=== PATIENT | male | born 1980 | race Caucasian/White ===

== ENCOUNTER 2017-04-29 15:56 | Emergency (ER) | payer MEDICARE, OTHER ==
[~2017-04-29] VITALS: Ht 167.6 cm; Wt 72.6 kg
[~2017-04-29 15:56] MED LIST: BUSP10TA35 PO; CHOL50006 PO; CYCL-343 PO; FAMO20TA8 PO; IBUP-1482 PO; MELO-264 PO; METO-304 PO; MIDO10TA PO; OFLO5DRO6 EACH EAR; OXCA300T PO; SERT50TA PO; TRAM50TA2 PO; TRAZ-147 PO
--- NOTE | 2017-04-29 16:25 | NUR ---
PT ISSAC FROM [facility] VN TO ER BED 11. C/O SUDDEN ONSET MIDSTERNAL CHEST PAIN. 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 GOWNE AND PLACED ON MONITOR. AWAITING MD DÍAZ.
--- NOTE | 2017-04-29 17:15 | NUR ---
HEALTHCARE FACILITY ADMINISTRATOR AT BEDSIDE FOR BLOOD DRAW.
[2017-04-29 17:22] LABS: BASOPHILS # (AUTO) 0.2 /CMM (0.0-0.2); BASOPHILS % (AUTO) 4.5 % (0.0-2.0); EOSINOPHILS # (AUTO) 0.1 /CMM (0.0-0.7); EOSINOPHILS % (AUTO) 1.7 % (0.0-6.0); HEMATOCRIT 42 % (39-51); HEMOGLOBIN 14.2 g/dL (13.5-17.5); LYMPHOCYTES # (AUTO) 1.6 /CMM (0.8-4.8); LYMPHOCYTES % (AUTO) 29.8 % (20.0-44.0); MEAN CORPUSCULAR HEMOGLOBIN 30 PG (26.0-33.0); MEAN CORPUSCULAR HGB CONC 34 g/dl (31.0-36.0); MEAN CORPUSCULAR VOLUME 89 fL (80-96); MONOCYTES # (AUTO) 0.4 /CMM (0.1-1.30); MONOCYTES % (AUTO) 6.8 % (2.0-12.0); NEUTROPHILS # (AUTO) 2.9 /CMM (1.8-8.9); NEUTROPHILS % (AUTO) 57.2 % (43.0-81.0); PLATELET COUNT (AUTO) 189 /CMM (150-450); RDW COEFFICIENT OF VARIATION 12.6 (11.5-15.0); RED BLOOD CELL COUNT(AUTO) 4.75 MIL/uL (4.5-6.0); WHITE BLOOD COUNT (AUTO) 5.2 K/uL (4.3-11.0)
--- NOTE | 2017-04-29 17:23 | NUR ---
RADIOLOGY AT BEDSIDE FOR EVAL.
[2017-04-29 17:42] LABS: CALCIUM, SERUM 8.7 mg/dL (8.5-10.1); CARBON DIOXIDE 27 mmol/L (21-32); CHLORIDE 105 mmol/L (98-107); CREATININE 0.8 mg/dL (0.6-1.3); GLUCOSE 86 mg/dL (74-106); SODIUM SERUM 141 mmol/L (136-145); UREA NITROGEN, BLOOD 12 mg/dL (7-18)
[2017-04-29 17:43] LABS: ALCOHOL, BLOOD < 3 mg/dL (0-0)
[2017-04-29 17:48] LABS: ALANINE AMINOTRANSFERASE 19 U/L (12-78); ALBUMIN 3.6 g/dL (3.4-5.0); ALKALINE PHOSPHATASE 38 U/L (46-116); ASPARTATE AMINOTRANSFERASE 21 U/L (15-37); BILIRUBIN,TOTAL 0.3 mg/dL (0.2-1.0); LIPASE 205 U/L (73-393); TOTAL PROTEIN, SERUM 6.4 g/dL (6.4-8.2)
[2017-04-29 17:50] LABS: TROPONIN I < 0.017 ng/mL (0.00-0.056)
[2017-04-29 17:59] LABS: VALPROIC ACID 43 ug/mL (50-100)
[2017-04-29 18:08] LABS: APPEARANCE,URINE Clear (CLEAR); BILIRUBIN,URINE Negative (NEGATIVE); BLOOD, URINE Negative Ery/uL (NEGATIVE); COLOR,URINE Yellow (YELLOW); KETONES,URINE Negative (NEGATIVE); LEUKOCYTE ESTERASE ,URINE Negative (NEGATIVE); NITRITE, URINE Negative (NEGATIVE); PROTEIN,URINE Negative (NEGATIVE); UGLUCOSE Negative (NEGATIVE); UROBILINOGEN,URINE 0.2 EU/dL (0.2)
--- NOTE | 2017-04-29 20:00 | NUR ---
ONLINE CONTENT COORDINATOR AT BEDSIDE FOR REPEAT TROP DRAW.
[2017-04-29 21:10] VITALS: BP 128/84
--- NOTE | 2017-04-29 21:10 | NUR ---
Patient discharged to home in stable condition. Written and verbal after care instructions given. Patient verbalizes understanding of instruction.IV removed. Catheter intact and site benign. Pressure and 4x4 applied to site. No bleeding noted.
== END 2017-04-29 21:11 | disposition home or self-care (01) ==
LOC: ER 16:00
DX: R07.2 Precordial pain (principal); F20.9 Schizophrenia, unspecified; F32.9 Major depressive disorder, single episode, unspecified; G40.909 Epilepsy, unspecified, not intractable, without status epilepticus; I10 Essential (primary) hypertension; I25.2 Old myocardial infarction; J44.9 Chronic obstructive pulmonary disease, unspecified; Z95.0 Presence of cardiac pacemaker; Z88.8 Allergy status to other drugs, medicaments and biological substances
CPT/HCPCS: 36415; 71010; 80048; 80076; 80164; 80305; 81001; 83690; 84484 ×2; 85025; 93005 ×3; 96374; 99285; A4606; G0480; J1885; 81000-TC; Z7610

== ENCOUNTER 2017-11-20 17:20 | Emergency (ER) | payer MEDICARE, OTHER ==
[~2017-11-20] VITALS: Ht 165.1 cm; Wt 66.7 kg
[~2017-11-20 17:20] MED LIST changes: -CYCL-343 PO; +CYCL10TA9 PO; -IBUP-1482 PO; +IBUP-1957 PO; +MELO-107 PO; -MELO-264 PO; -METO-304 PO; +METO-357 PO; -OXCA300T PO; +OXCA300T15 PO; -TRAZ-147 PO; +TRAZ-214 PO
[2017-11-20] MEDS ORDERED: KETOROLAC TROMETHAMINE INJ 30 MG/ML VIAL IV ONE (18:00)
[2017-11-20 18:03] LABS: BASOPHILS % (AUTO) 0.9 % (0.0-2.0); EOSINOPHILS % (AUTO) 2.3 % (0.0-6.0); HEMATOCRIT 43 % (39-51); HEMOGLOBIN 15.3 g/dL (13.5-17.5); LYMPHOCYTES # (AUTO) 1.6 /CMM (0.8-4.8); LYMPHOCYTES % (AUTO) 34.7 % (20.0-44.0); MEAN CORPUSCULAR HGB CONC 36 g/dl (31.0-36.0); MEAN CORPUSCULAR VOLUME 88 fL (80-96); MONOCYTES # (AUTO) 0.4 /CMM (0.1-1.30); MONOCYTES % (AUTO) 8.6 % (2.0-12.0); NEUTROPHILS # (AUTO) 2.5 /CMM (1.8-8.9); NEUTROPHILS % (AUTO) 53.5 % (43.0-81.0); PLATELET COUNT (AUTO) 168 /CMM (150-450); RDW COEFFICIENT OF VARIATION 12.3 (11.5-15.0); RED BLOOD CELL COUNT(AUTO) 4.88 MIL/uL (4.5-6.0); WHITE BLOOD COUNT (AUTO) 4.6 K/uL (4.3-11.0)
[2017-11-20] MEDS ORDERED: KETOROLAC TROMETHAMINE INJ 30 MG/ML VIAL ONE (18:03)
[2017-11-20 18:05] LABS: APPEARANCE,URINE Clear (CLEAR); BILIRUBIN,URINE Negative (NEGATIVE); BLOOD, URINE Negative Ery/uL (NEGATIVE); COLOR,URINE Yellow (YELLOW); KETONES,URINE Negative (NEGATIVE); LEUKOCYTE ESTERASE ,URINE Negative (NEGATIVE); NITRITE, URINE Negative (NEGATIVE); PH,URINE 5.5 (5.0-8.0); PROTEIN,URINE Negative (NEGATIVE); UGLUCOSE Negative (NEGATIVE); UROBILINOGEN,URINE 0.2 EU/dL (0.2)
--- NOTE | 2017-11-20 18:05 | NUR ---
[id number] FROM PSYCHE FACILITY FOR "S/P POSSIBLE SEIZURE". PT STATES PAIN LEVEL 9/10 "CRUSHING LIKE". PT STATES "I FELL ON MY RIGHT SIDE AND HIT MY HEAD". BS 86 IN FIELD. PT IS A/A/O x 4. RESP EVEN AND UNLABORED. NO S/S OF ACUTE DISTRESS NOTED. VSS. PT PLACED ON MONITOR AND POX. PT SAFETY AND COMFORT MEASURES IN PLACE. SEIZURE PRECAUTIONS IN PLACE. PRAVIN OLMSTEAD BEDSIDE FOR EVAL.
[2017-11-20 18:13] LABS: CALCIUM, SERUM 8.6 mg/dL (8.5-10.1); CARBON DIOXIDE 30 mmol/L (21-32); CHLORIDE 104 mmol/L (98-107); CREATININE 0.9 mg/dL (0.6-1.3); GLUCOSE 99 mg/dL (74-106); POTASSIUM 3.8 mmol/L (3.5-5.1); SODIUM SERUM 141 mmol/L (136-145); UREA NITROGEN, BLOOD 11 mg/dL (7-18)
[2017-11-20 18:19] LABS: ALANINE AMINOTRANSFERASE 23 U/L (12-78); ALKALINE PHOSPHATASE 46 U/L (46-116); ASPARTATE AMINOTRANSFERASE 18 U/L (15-37); BILIRUBIN,DIRECT 0.1 mg/dL (0.0-0.2); BILIRUBIN,TOTAL 0.3 mg/dL (0.2-1.0); TOTAL PROTEIN, SERUM 7.1 g/dL (6.4-8.2)
[2017-11-20 18:21] LABS: TROPONIN I < 0.017 ng/mL (0.00-0.056)
--- NOTE | 2017-11-20 18:37 | NUR ---
Patient is resting comfortably in bed. VSS. NO S/S OF ACUTE DISTRESS NOTED IN PT.
[2017-11-20] MEDS ORDERED: DIVALPROEX SODIUM 500 MG TABLET.DR PO ONE ×2 (18:39→19:00)
[2017-11-20] MEDS ORDERED: VALPROATE 1,000 MG in IV NS 0.9% 100 ML IV SCH (19:00)
--- NOTE | 2017-11-20 21:28 | NUR ---
Patient is resting comfortably in bed. VSS. NO S/S OF ACUTE DISTRESS NOTED IN PT. PT SAFETY AND COMOFRT MEASURES IN PLACE. SEIZURE PRECAUTIONS IN PLACE.
--- NOTE | 2017-11-20 21:36 | NUR ---
Patient discharged to home in stable condition. Written and verbal after care instructions given. Patient verbalizes understanding of instruction.IV removed. Catheter intact and site benign. Pressure and 4x4 applied to site. No bleeding noted. VSS upon discharge. Taxi voucher provided to pt. Pt ambulated with steady gait out of ER.
[2017-11-20 21:50] VITALS: BP 141/84
== END 2017-11-20 21:51 | disposition home or self-care (01) ==
LOC: ER 17:22
DX: G40.909 Epilepsy, unspecified, not intractable, without status epilepticus (principal); F20.9 Schizophrenia, unspecified; F32.9 Major depressive disorder, single episode, unspecified; I10 Essential (primary) hypertension; I25.2 Old myocardial infarction; J44.9 Chronic obstructive pulmonary disease, unspecified; Z95.0 Presence of cardiac pacemaker; Z88.8 Allergy status to other drugs, medicaments and biological substances; Z60.2 Problems related to living alone
CPT/HCPCS: 36415; 71045; 80048; 80076; 80164; 81001; 84484 ×2; 85025; 93005; 96365; 96375; 99285; A4606; J1885; J3490; J7030; 81000-TC; Z7610